=== PATIENT | male | born 1955 ===

== ENCOUNTER → 2019-08-04 | Outpatient (CLI) | payer MEDICARE ==
[~2019-08-04] VITALS: Ht 175 cm; Wt 90.9 kg
[~2019-08-04] MED LIST: ASPI-999 PO; ATOR80TA76 PO; CLOP75TA28 PO; LISI-552 PO; METF-397 PO; METO-370 PO; PARO30TA3 PO; RANO500T3 PO
== END ==
LOC: PREOP 07-31 05:36
PROVIDERS: ATTEND Surgery
DX: Z01.818 Encounter for other preprocedural examination (principal)

== ENCOUNTER 2019-09-18 05:42 | Outpatient (CLI) | payer MEDICARE, MEDICAID ==
[~2019-09-18] VITALS: Ht 177.8 cm; Wt 90.9 kg
[~2019-09-18 05:42] MED LIST changes: -METO-370 PO; +METO50TA7 PO
== END 2019-09-18 14:42 | disposition home or self-care (01) ==
LOC: PREOP 05:42
PROVIDERS: ATTEND Surgery
DX: Z01.818 Encounter for other preprocedural examination (principal)